=== PATIENT | female | born 1995 | race African-American/Black ===

== ENCOUNTER 2020-07-20 12:00 | Emergency (ER) | payer SELFPAY ==
--- NOTE | 2020-07-20 12:14 | ER Document Report ---
ED Medical Screen (RME) - General Chief Complaint: Vaginal Discharge Stated Complaint: VAGINAL SWELLING,DISCHARGE Time Seen by Provider: 07/20/20 12:07 - HPI Notes: 07/20/20 12:13 29-year-old female to the emergency department with complaints of 4 days of labial swelling as well as vaginal discharge. She states the discharge is white. She states that she is never had anything like this before. She denies any fevers but does endorse chills. Missed a little bit of nausea last night. Denies any painful urination. Last menstrual period was 2 weeks ago. I performed a brief medical screening exam on the patient determined that the patient needs further evaluation and management by main side provider. I have placed initial orders to help expedite care.
--- NOTE | 2020-07-20 12:38 | ER Document Report ---
ED General - General Chief Complaint: Vaginal Discharge Stated Complaint: VAGINAL SWELLING,DISCHARGE Time Seen by Provider: 07/20/20 12:07 Primary Care Provider: [facility] [Outside] - Follow up as needed Mode of Arrival: Ambulatory Information source: Patient Notes: 25-year-old female patient presenting to the emergency department with pain and vaginal swelling. Patient reports this has been ongoing for the last 3 days. She also reports abnormal vaginal discharge. She denies any fever or chills. Denies any abdominal pain. Denies any possibility of being . - Related Data Allergies/Adverse Reactions: No Known Allergies Allergy (Unverified 07/20/20 14:17) Past Medical History - General Information source: Patient - Social History Smoking Status: Never Smoker Family History: Reviewed & Not Pertinent - Medical History Medical History: Negative Surgical Hx: Negative Review of Systems - Review of Systems Female Genitourinary: Vaginal discharge, Vaginal odor, Other - Pain/swelling to vagina Physical Exam - Vital signs Vitals: Temp Pulse Resp BP Pulse Ox 99.3 F 141 H 20 134/84 H 98 07/20/20 12:08 07/20/20 12:08 07/20/20 12:08 07/20/20 12:08 07/20/20 12:08 - Notes Notes: PHYSICAL EXAMINATION: GENERAL: Well-appearing, well-nourished and in no acute distress. HEAD: Atraumatic, normocephalic. EYES: Pupils equal round and reactive to light, extraocular movements intact, conjunctiva are normal. ENT: Nares patent, oropharynx clear without exudates. Moist mucous membranes. NECK: Normal range of motion, supple without lymphadenopathy LUNGS: Breath sounds clear to auscultation bilaterally and equal. No wheezes rales or rhonchi. HEART: Regular rate and rhythm without murmurs ABDOMEN: Soft, nontender, nondistended abdomen. No guarding, no rebound. No masses appreciated. Female : Vaginal exam performed, Bartholin cyst noted to left labia, draining copious foul-smelling secretions. No adnexal or cervical motion tenderness. Whitish-red discharge noted at the cervix. Chaperoned by GRACE Gunderson Musculoskeletal: Normal range of motion, no pitting or edema. No cyanosis. NEUROLOGICAL: Cranial nerves grossly intact. Normal speech, normal gait. Normal sensory, motor exams PSYCH: Normal mood, normal affect. SKIN: Warm, Dry, normal turgor, no rashes or lesions noted. Course - Re-evaluation Re-evalutation: Patient appears well, nontoxic. She has a Bartholin cyst that started draining while she was in the room. I did not incise and drain this myself. I did express additional pus from the area. It had a very foul smell to it. Her wet mount came back with 4+ bacteria. She will be treated with antibiotics. Encouraged her to follow-up with the health department for recheck in 1 to 2 weeks. Counseled her on sits baths. - Vital Signs Vital signs: Temp Pulse Resp BP Pulse Ox 98.7 F 119 H 18 141/96 H 100 07/20/20 17:12 07/20/20 16:47 07/20/20 16:47 07/20/20 16:47 07/20/20 16:47 - Laboratory Laboratory results interpreted by me: 07/20/20 12:20 Urine Ketones 20 H Urine Urobilinogen 2.0 H Leukocyte Esterase Rfl LARGE H Discharge - Discharge Clinical Impression: Bacterial vaginosis UTI (urinary tract infection) Qualifiers: Urinary tract infection type: site unspecified Hematuria presence: without hematuria Qualified Code(s): N39.0 - Urinary tract infection, site not specified Condition: Stable Disposition: HOME, SELF-CARE Additional Instructions: Bartholin Gland Cyst or Abcess The Bartholin glands are located on each side of the entrance to the vagina. These glands secrete lubricating fluid. If a gland becomes plugged, it can create a "Bartholin's cyst." This creates a large bulge on one side of the labia. A cyst is usually not very painful. If a Bartholin's cyst or gland becomes infected, it creates an abscess. This is a painful collection of pus. One side of the labia becomes swollen, red, and painful. It will be very painful to walk or sit. When a Bartholin's cyst causes mild symptoms, it can sometimes be treated with sitz baths and antibiotics. A painful abscess usually needs to be drained (lanced). If there are signs of infection in the tissues around the abscess, we prescribe antibiotics. Antibiotics are not always necessary for an abscess that's been drained. If packing has been placed, it's important to follow up as scheduled for removal or replacement of the packing. Return if you have increasing fever, body aches, lightheadedness, or if the swelling and pain is getting worse. You have an overgrowth of natural vaginal bacteria, called bacterial vaginosis. You are being treated with an antibiotic called metronidazole. Do not drink alcohol while taking this medication. Complete all of the antibiotic even if your symptoms have resolved. Return for abdominal pain, vomiting, fever of greater than 101F, or any other symptoms that are worrisome to you. Please follow-up with your [facility] or primary care doctor as needed. Your urine shows findings consistent with a urinary tract infection. Please take all the antibiotics as directed even if your symptoms have improved. Please follow-up with your primary care physician as needed. Return to emergency room if you develop fever >101F, persistent vomiting, become lethargic, have severe pain in your sides, or any other symptoms that are concerning to you. Prescriptions: Metronidazole [Flagyl 500 mg Tablet] 500 mg PO BID #28 tablet Doxycycline Hyclate [Vibramycin 100 mg Tablet] 100 mg PO BID #20 tablet Referrals: [facility] [Outside] - Follow up as needed
[2020-07-20 12:54] LABS: APPEARANCE,URINE CLOUDY; BILIRUBIN,URINE NEGATIVE (NEGATIVE); COLOR,URINE YELLOW; GLUCOSE, URINE NEGATIVE (NEGATIVE); KETONES,URINE 20 mg/dL (NEGATIVE); PROTEIN,URINE NEGATIVE (NEGATIVE); URINE SPECIFIC GRAVITY 1.018
[2020-07-20 14:51] LABS: BACTERIA (WET MOUNT) 4+ BACTERIA SEEN; EPITHELIALS (WET MOUNT) 4+ EPITHELIALS SEEN; RBCS (WET MOUNT) 3+ RBCS SEEN; T.VAGINALIS (WET MOUNT) NO TRICHOMONAS SEEN; WBCS (WET MOUNT) 4+ WBCS SEEN; YEAST (WET MOUNT) YEAST SEEN
[2020-07-20 16:16] LABS: CHLAM PCR NOT DETECTED (NOT DETECT)
[2020-07-20 17:10] VITALS: BP 141/96
== END 2020-07-20 17:00 | disposition home or self-care (01) ==
LOC: EDBD → ER 12:00
DX: N76.0 Acute vaginitis (principal); B96.89 Other specified bacterial agents as the cause of diseases classified elsewhere; N39.0 Urinary tract infection, site not specified; N75.0 Cyst of Bartholin's gland
CPT/HCPCS: 81001; 81025; 87210; 87491; 87591; 99284